=== PATIENT | male | born 1955 | race Caucasian/White ===

== ENCOUNTER 2018-06-21 23:20 | Observation (INO) ==
[2018-06-22] MEDS ORDERED: Naloxone 0.4 MG/ML INJ IVP PRN ×2 (00:54→03:24)
[2018-06-22] MEDS: D5% in 0.45% NACL 1,000 ML IVC SCH ×2 (02:12→12:04)
--- NOTE | 2018-06-22 03:40 | Internal Med History&Physical ---
Date of Encounter: 06/23/18 Time of Encounter: 03:38 Internal Medicine - H&P: HPI Chief complaint: AMS History of present illness: Mr. Rodriguez is a 63 year old male with no prior past medical history who initially was brought by EMS to [facility] due to altered mental status. At the time my assessment patient was refusing to open his eyes and provide any verbal response but was following commands. Patient's family was at the bedside who provided the majority of the history as well medical documents obtained from [facility]. Per the family, patient was in his usual state of health earlier today. He was was last reported seen to be behaving normally around 2 PM. Around 5 PM patient called his brother. His brother reports patient sounded confused, had slurred speech, and was unaware where he was. Around 6:30 PM patient was eventually found sitting in his jeep parked along a back road. His son-in-law was a first to arrive at the scene. He reports that the patient was sitting up in his jeep with his hands clenched on the steering wheel with his eyes closed. He reportedly was following commands but refused to open his eyes and was not speaking. From his standpoint there was no evidence of facial droop or incontinence. He did appear to be drooling and did appear to move all his extremities. Eventually EMS arrived 15 minutes later. 3 people were required to remove the patient from his vehicle as he showed resistance, clutching to the interior of the car. Family reports that a similar incident occurred 4 years ago. The patient spontaneously recovered from that episode. As noted above, patient has no prior medical history. He does not follow with any physician. He is not currently taking any medications. Family states he does not use drugs. He does chew tobacco but no alcohol. His initial set of vital vitals were relatively normal. His blood pressure was elevated at 174 for 77. Initial NIH of 8. Laboratory workup at [facility] including a complete metabolic panel was notable only for a mildly elevated creatinine of 1.65 and blood sugar of 182. His CBC was normal. Urine drug screen was negative. CT scan of the head was negative. CT scan of the abdomen showed enlarged prostate. Patient was given 1 dose of Rocephin 1 g possible UA. Past Med Surg Social Fam HX - Past Medical History Additional medical history: hole in intestiine Psychiatric history: no psych history - Social History Smoking Status: Never smoker Smokeless Tobacco Status: Yes (can a day) Alcohol use: none Drug use: none - Family History Mother Living Status: Age at : 70 Cause of : cancer Father Living Status: Age at : 50 Cause of : heart attack Sister Age: 66 Living Status: Still Living Hx Family Musculoskeletal Disorders: Yes (MS) Son Age: 28 Living Status: Still Living Hx Family Neurologic Disorders: (seizure disorder) Internal Medicine - H&P: Meds No Known Home Drugs 06/22/18 [History] 3 Allergy/AdvReac Type Severity Reaction Status Date / Time No Known Allergies Allergy Verified 06/22/18 15:02 All Systems PM: A 10-system review of systems was performed and is negative for pertinent findings except as documented above in the HPI. - Constitutional Constitutional: no chills, no fever(s), no night sweats - EENT Eyes: no change in vision, no discharge, no pain, no photophobia Ears: no ear discharge, no ear pain, no tinnitus Nose, mouth and throat: no dysphagia, no nasal discharge, no neck pain, no sore throat - Cardiovascular Cardiovascular ROS IM: no chest pain, no diaphoresis, no dyspnea, no lightheadedness, no palpitations, no syncope - Respiratory Respiratory: no cough, no dyspnea, no wheezing, no excessive phlegm production - Gastrointestinal Gastrointestinal: no abdominal pain, no diarrhea, no hematemesis, no hematochezia, no melena, no nausea, no vomiting - Musculoskeletal Musculoskeletal ROS IM: no numbness, no tingling - Integumentary Integumentary IM: no rash, no unusual bruising - Neurological Neurological ROS: no confusion, no convulsions, no focal weakness, no numbness, no tingling, no tremor(s) - Hematologic/Lymphatic Hematologic/Lymphatic: no easy bruising - Constitutional Vitals: Temp Pulse Resp BP Pulse Ox 97.8 F 65 17 154/80 98 06/22/18 01:17 06/22/18 01:17 06/22/18 01:17 06/22/18 01:17 06/22/18 01:17 Exam: General: Patient lying in bed. Responding to verbal commands but refuses to open eyes and speak. Skin: Normal color, no rash, no lesions. HEENT: No nuchal rigidity. EOM, pupils equal, round and reactive. Cardiovascular:Normal S1 & S2, no rubs, murmurs or gallops. No JVD. Pulse regular. Lungs:Normal breath sounds, no wheezes or crackles. Abdomen:Soft, non-tender, no rigidity. Extremities:No deformity, no edema or tenderness, no joint swelling or clubbing. Neurological: Patient following commands. Patient moving all 4 extremities. Pupils equal and reactive to light. Pulses:Carotid and radial pulses normal +2. Rest of the physical exam is non contributory Internal Med - H&P Results - Labs CBC & Chem 7: 06/22/18 04:41 06/22/18 04:41 - Assessment and plan (1) Altered mental status, unspecified Current Visit: Yes Status: Acute Assessment and plan: Altered mental status of unclear etiology. Family reports patient had similar presentation 4 years prior and spontaneously resolved. CT scan of the head at [facility] was negative. Based on history patient does not appear to have any focal deficits at this time to suggest cerebral vascular accident. Patient follows commands able to move all 4 extremities however simply refuses to open his eyes and speak. No prior reports of seizures and current presentation is atypical. Laboratory workup was unremarkable for suspicion of any infectious etiology or toxic metabolic encephalopathy as you urine drug screen was negative. Ethanol, acetaminophen level and blood cultures were also obtained at [facility] results of which I do not have. We will repeat these laboratory tests as well as TSH. No other metabolic derangements seen. EKG repeated here at [place] was unremarkable. Current presentation may be psychiatric versus ingestion of an unknown substance which was not picked up on UDS. Neuro checks every 4 We will obtain psychiatry consult for possible conversion disorder Consider MRI in the morning. Qualifiers: Altered mental status type: unspecified Qualified Code(s): R41.82 - Altered mental status, unspecified (2) RHONDA (acute kidney injury) Current Visit: Yes Status: Acute Assessment and plan: Patient received 1 L bolus at [facility]. We will start patient on maintenance fluids. Repeat chemistry in the morning. (3) Hyperglycemia Current Visit: Yes Status: Acute Assessment and plan: No documented history of diabetes. We will check A1c as well as lipid panel. Blood glucose checks. Sliding scale as needed. (4) DVT prophylaxis Current Visit: Yes Status: Acute - Time Spent With Patient Total time spent is greater than 50% in coordination of care (as documented) at patient's floor/unit and/or counseling patient:
[2018-06-22] MEDS ORDERED: Dextrose Gel 15 GM/37.5 ML TUBE PO PRN ×2 (04:40)
[2018-06-22] MEDS ORDERED: D5% in Water 1,000 ML IVC PRN (04:40)
[2018-06-22] MEDS ORDERED: *HR* Dextrose 50 % in Water (Syg) 50 ML SYRINGE IVP PRN (04:40)
[2018-06-22 05:02] LABS: Basophils % 0.7 %; Eosinophils # 0.1 K/mcL (0.0-0.6); Eosinophils % 1.3 %; Hematocrit 38.8 % (37.5-50.1); Hemoglobin 12.7 g/dL (12.9-16.9); Immature Granulocytes % 0.5 % (0-4); Lymphocytes # 1.7 K/mcL (0.6-4.6); Mean Corpuscular HGB Conc 32.7 g/dL (31.6-35.5); Mean Corpuscular Hemoglobin 26.1 pg (28.0-33.3); Mean Corpuscular Volume 79.7 fL (83.0-100.0); Mean Platelet Volume 10.4 fL (9.4-12.4); Monocytes # 0.6 K/mcL (0.0-1.3); Monocytes % 9.7 %; Neutrophils # 3.6 K/mcL (1.6-8.9); Platelet Count 202 K/mcL (140-400); Red Blood Count 4.87 M/mcL (4.19-5.50); Red Cell Distribution Width 14.4 % (11.5-14.5); Segmented Neutrophils % 59.8 %
[2018-06-22] MEDS: *HR* Heparin 5,000 UNIT/ML VIAL SQ SCH ×3 (05:28→21:26)
[2018-06-22 05:29] LABS: Acetaminophen < 10 mcg/mL (10-20); Creatine Kinase 76 Units/L (30-223); Ethanol < 10 mg/dL (Less than 10)
[2018-06-22 05:30] LABS: Alanine Aminotransferase 16 Units/L (7-52); Albumin 3.8 g/dL (3.5-5.7); Albumin/Globulin Ratio 1.7 (1.1-2.2); Alkaline Phosphatase 70 Units/L (34-104); Aspartate Amino Transferase 15 Units/L (13-39); BUN/Creatinine Ratio 12 (6-26); Bilirubin,Total 0.3 mg/dL (0.3-1.0); Blood Urea Nitrogen 15 mg/dL (8-23); Calcium 8.9 mg/dL (8.6-10.3); Carbon Dioxide 24 mEq/L (23-29); Chloride 112 mEq/L (98-107); Chol/HDL Ratio 5.1 (0-4.9); Cholesterol 138 mg/dL (< 200); Globulin 2.2 g/dL (2.4-3.5); Glucose 115 mg/dL (70-105); HDL Cholesterol 27 mg/dL (40-59); LDL Cholesterol,Calculated 89 mg/dL (0-99); Magnesium 2.1 mg/dL (1.6-2.6); Osmolality,Calculated 296 (280-300); Potassium 3.6 mEq/L (3.5-5.1); Sodium 142 mEq/L (136-145); Triglycerides 111 mg/dL (< 150); Troponin I < 0.03 ng/mL (< 0.04); eGFR For Non-African Americans > 60 (> 60)
[2018-06-22] MEDS: Insulin LISPRO 300 UNITS/3 ML VIAL SQ SCH ×3 (05:31→17:50)
[2018-06-22 05:42] LABS: Thyroid Stimulating Hormone 3.943 mcIU/mL (0.340-5.600)
[2018-06-22 05:42] LABS: Bilirubin,Urine Negative (Negative); Blood,Urine Trace (Negative); Clarity,Urine Clear (Clear); Color,Urine Yellow (Yellow); Glucose,Urine (UA) Normal (Normal); Ketones,Urine Negative (Negative); Leukocyte Esterase,Urine Negative (Negative); Nitrite,Urine Negative (Negative); Protein,Urine Negative (Neg-Trace); Specific Gravity,Urine > 1.030 (1.010-1.025); Urobilinogen,Urine Normal (Normal)
[2018-06-22 05:44] LABS: Bacteria,Urine None Seen per hpf (None-Few); Hyaline Casts,Urine None Seen per lpf (None-Few); RBC,Urine 0-3 per hpf (0-3); Squamous Epithelial Cell,Urine Few per lpf (None-Few)
[2018-06-22 10:15] LABS: Estimated Average Glucose 103 mg/dl; Hemoglobin A1C 5.2 %
--- NOTE | 2018-06-22 12:31 | Event Note ---
Date of Encounter: 06/22/18 Time of Encounter: 12:31 Patient seen and examined earlier this am by hospitalist. I did review records from outside facility Currently awake asked patient to tell me his name He shook his head no. He follows simple commands cranial nerve 2-12 intact. No focal deficit noted. No infectious process noted. Daughter at bedside who states that patient experienced very similar episode approximately 4 years ago and it resolved on its own. We will obtain MRI to rule out possible stroke/ TIA. Awaiting psychiatric evaluation and recommendations. Continue with neuro checks. Consult neurology as needed. He is hemodynamically stable this time.
--- NOTE | 2018-06-22 14:47 | Consult Note ---
Date of Encounter: 06/22/18 Time of Encounter: 14:00 Assessment & Recommendation (1) Generalized anxiety disorder Current visit: Yes Status: Chronic Assessment & Recommendation: start lexapro 5 mg po am History of Present Illness Patient: new to practice Requesting Physician: Verna Patel MD Reason for consult: altered mental status History of present illness: Mr. Rodriguez is a 63 year old male was consulted at his bed side , chart reviewed , got collateral from his daughter. Patient is peasant , verbal but kept his eyes mostly closed. He does not remember what happened and no recall of the episode he had. He was bought to ED with AMS, and was found confused with slurred speech and was in his car with his hands clenched on the wheels. At present patient agreed he has some stressor , he has generalized anxiety and some stress, denied any a/v hallucination, no paranoia , no psychosis, no depression , no si/hi. He lives alone for 6 years , very close to his family , has 4 children , he staed his sleep and appetite ok, he likes to go out and eat mostly. He denies Alcohol, drugs, cig. he chew tobacco. Collateral from his daughter Ms. Gagnon As per her today her father is much better , he had same episode in past but recovered spontaneously, states he has sold his home and bought brand new [employer] and will live next to her , but since he got camper 4 weeks ago it has been having problems and has gone back and forth and that was the stress, he wants to live close to his daughter she states my father is family man and last time also they said he has anxiety but never gave any medication. at present as per chart he will have MRI. A/p Generalized anxiety disorder Start Lexapro 5 mg po am , patient agreed with the plan. at present no other psych s/s thank you for consult and involving in his care. Will sign off. CC: Verna Patel MD CC:I feel ok. Past Med Surg Social Fam HX - Past Psychiatric History Psychiatric history: Reports: no psych history Family psychiatric history: No Family History of Suicide: None - Social History Smoking Status: Never smoker Smokeless Tobacco Status: Yes (can a day) Alcohol use: none Drug use: none - Family History Mother Living Status: Age at : 70 Cause of : cancer Father Living Status: Age at : 50 Cause of : heart attack Sister Age: 66 Living Status: Still Living Hx Family Musculoskeletal Disorders: Yes (MS) Son Age: 28 Living Status: Still Living Hx Family Neurologic Disorders: (seizure disorder) Medications & Allergies 3 Allergy/AdvReac Type Severity Reaction Status Date / Time No Known Allergies Allergy Verified 06/22/18 02:07 Review of Systems Psychiatric: Reports: anxiety Psychiatry Exam - Constitutional Vitals: Temp Pulse Resp BP Pulse Ox 97.8 F 63 16 142/76 96 06/22/18 11:36 06/22/18 11:36 06/22/18 11:36 06/22/18 11:36 06/22/18 11:36 General appearance: age & developmentally appropriate - Psychiatric Patient Orientation: Yes Person, Yes Time, Yes Place Level of alertness: Alert Behavior: cooperative Eye Contact: Minimal Contact Mood Description: Anxious Affect description: constricted Speech Volume: Soft/Quiet Speech pattern: clear, coherent, slowed Language & Vocabulary: consistent with education Thought Process: Intact Thought Content: Yes Intact Attention Span Ability: Capable of Focused Attention Intelligence Estimate: Average Judgment: Good Insight: Partial Results - Drug Levels and Toxicology Drug Levels and Toxicology: Drug Levels and Toxicity 06/22/18 04:41 Acetaminophen < 10 L Ethyl Alcohol < 10 - Labs Labs: Laboratory Last Values WBC 6.0 K/mcL (4.3-11.1) 06/22/18 04:41 RBC 4.87 M/mcL (4.19-5.50) 06/22/18 04:41 Hgb 12.7 g/dL (12.9-16.9) L 06/22/18 04:41 Hct 38.8 % (37.5-50.1) 06/22/18 04:41 MCV 79.7 fL (83.0-100.0) L 06/22/18 04:41 MCH 26.1 pg (28.0-33.3) L 06/22/18 04:41 MCHC 32.7 g/dL (31.6-35.5) 06/22/18 04:41 RDW 14.4 % (11.5-14.5) 06/22/18 04:41 Plt Count 202 K/mcL (140-400) 06/22/18 04:41 MPV 10.4 fL (9.4-12.4) 06/22/18 04:41 Immature Gran % 0.5 % (0-4) 06/22/18 04:41 Seg Neutrophils % 59.8 % 06/22/18 04:41 Lymphocytes % 28.0 % 06/22/18 04:41 Monocytes % 9.7 % 06/22/18 04:41 Eosinophils % 1.3 % 06/22/18 04:41 Basophils % 0.7 % 06/22/18 04:41 Neutrophils # 3.6 K/mcL (1.6-8.9) 06/22/18 04:41 Lymphocytes # 1.7 K/mcL (0.6-4.6) 06/22/18 04:41 Monocytes # 0.6 K/mcL (0.0-1.3) 06/22/18 04:41 Eosinophils # 0.1 K/mcL (0.0-0.6) 06/22/18 04:41 Basophils # 0.0 K/mcL (0.0-0.2) 06/22/18 04:41 Sodium 142 mEq/L (136-145) 06/22/18 04:41 Potassium 3.6 mEq/L (3.5-5.1) 06/22/18 04:41 Chloride 112 mEq/L (98-107) H 06/22/18 04:41 Carbon Dioxide 24 mEq/L (23-29) 06/22/18 04:41 BUN 15 mg/dL (8-23) 06/22/18 04:41 Creatinine 1.22 mg/dL (0.70-1.30) 06/22/18 04:41 Est GFR ( Amer) > 60 (> 60) 06/22/18 04:41 Est GFR (Non-Af Amer) > 60 (> 60) 06/22/18 04:41 BUN/Creatinine Ratio 12 (6-26) 06/22/18 04:41 Glucose 115 mg/dL (70-105) H 06/22/18 04:41 Est Mean Plasma Glucose 103 mg/dl 06/22/18 04:41 Hemoglobin A1c 5.2 % (-5.6) 06/22/18 04:41 Calculated Osmolality 296 (280-300) 06/22/18 04:41 Lactic Acid 1.0 mmol/L (0.5-2.2) 06/22/18 04:41 Calcium 8.9 mg/dL (8.6-10.3) 06/22/18 04:41 Magnesium 2.1 mg/dL (1.6-2.6) 06/22/18 04:41 Total Bilirubin 0.3 mg/dL (0.3-1.0) 06/22/18 04:41 AST 15 Units/L (13-39) 06/22/18 04:41 ALT 16 Units/L (7-52) 06/22/18 04:41 Alkaline Phosphatase 70 Units/L (34-104) 06/22/18 04:41 Creatine Kinase 76 Units/L (30-223) 06/22/18 04:41 Troponin I < 0.03 ng/mL (< 0.04) 06/22/18 04:41 Serum Total Protein 6.0 g/dL (6.4-8.9) L 06/22/18 04:41 Albumin 3.8 g/dL (3.5-5.7) 06/22/18 04:41 Globulin 2.2 g/dL (2.4-3.5) L 06/22/18 04:41 Albumin/Globulin Ratio 1.7 (1.1-2.2) 06/22/18 04:41 Triglycerides 111 mg/dL (< 150) 06/22/18 04:41 Cholesterol 138 mg/dL (< 200) 06/22/18 04:41 LDL Cholesterol, Calc 89 mg/dL (0-99) 06/22/18 04:41 VLDL Cholesterol, Calc 22 mg/dL (< 31) 06/22/18 04:41 HDL Cholesterol 27 mg/dL (40-59) L 06/22/18 04:41 Cholesterol/HDL Ratio 5.1 (0-4.9) H 06/22/18 04:41 TSH 3.943 mcIU/mL (0.340-5.600) 06/22/18 04:41 Urine Color Yellow (Yellow) 06/22/18 05:34 Urine Clarity Clear (Clear) 06/22/18 05:34 Urine pH 6.0 pH Units (5.0-8.0) 06/22/18 05:34 Ur Specific [place] > 1.030 (1.010-1.025) H 06/22/18 05:34 Urine Protein Negative mg/dL (Neg-Trace) 06/22/18 05:34 Urine Glucose (UA) Normal mg/dL (Normal) 06/22/18 05:34 Urine Ketones Negative mg/dL (Negative) 06/22/18 05:34 Urine Blood Trace (Negative) H 06/22/18 05:34 Urine Nitrite Negative (Negative) 06/22/18 05:34 Urine Bilirubin Negative (Negative) 06/22/18 05:34 Urine Urobilinogen Normal mg/dL (Normal) 06/22/18 05:34 Ur Leukocyte Esterase Negative (Negative) 06/22/18 05:34 Urine Microscopic RBC 0-3 per hpf (0-3) 06/22/18 05:34 Urine Microscopic WBC 3-5 per hpf (0-3) H 06/22/18 05:34 Ur Squamous Epith Cells Few per lpf (None-Few) 06/22/18 05:34 Urine Bacteria None Seen per hpf (None-Few) 06/22/18 05:34 Hyaline Casts None Seen per lpf (None-Few) 06/22/18 05:34 Ur Culture Indicated? NO (NO) 06/22/18 05:34 Acetaminophen < 10 mcg/mL (10-20) L 06/22/18 04:41 Ethyl Alcohol < 10 mg/dL (Less than 10) 06/22/18 04:41 Consult Discharge Plan - Plan Referrals: NONE,PCP [Primary Care Provider] - Doreen Arriaga [Family Provider] -
[2018-06-22] MEDS ORDERED: Acetaminophen 325 MG TABLET PO PRN (15:55)
[2018-06-22] MEDS ORDERED: Insulin LISPRO 300 UNITS/3 ML VIAL SQ SCH (21:00)
[2018-06-23] MEDS: *HR* Heparin 5,000 UNIT/ML VIAL SQ SCH (06:01)
[2018-06-23] MEDS ORDERED: Insulin LISPRO 300 UNITS/3 ML VIAL SQ SCH (07:30)
[2018-06-23 07:33] VITALS: BP 149/88
--- NOTE | 2018-06-23 10:57 | Discharge Summary ---
- NOTES TO OUTPATIENT PROVIDER Notes to Outpatient Provider: f/u with PCP within a week. Orders not resulted at time of discharge: Pending orders 06/22/18 04:41 Culture,Blood [BC] AM 0400 06/22/18 12:49 Vitamin B1 (Thiamine) Whole Bl Routine 06/23/18 06:00 EKG [ECG 12 lead ECG] [ECG] AM 0600 Date of Encounter: 06/23/18 Time of Encounter: 10:54 - Discharge Diagnosis (1) Altered mental status, unspecified Priority: Primary Status: Acute Qualifiers: Altered mental status type: unspecified Qualified Code(s): R41.82 - Altered mental status, unspecified (2) RHONDA (acute kidney injury) Priority: Primary Status: Acute (3) Hyperglycemia Priority: Primary Status: Resolved (4) DVT prophylaxis Priority: Primary Status: Acute (5) Generalized anxiety disorder Priority: Secondary Status: Chronic (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 Rodriguez is a 63 year old male with past medical history of anxiety who initially was brought by EMS to [facility] due to altered mental status. Patient's family was at the bedside who provided the majority of the history as well medical documents obtained from [facility]. Per the family, patient was in his usual state of health earlier today. He was was last reported seen to be behaving normally around 2 PM. Around 5 PM patient called his brother. His brother reports patient sounded confused, had slurred speech, and was unaware where he was. Around 6:30 PM patient was eventually found sitting in his jeep parked along a back road. His son-in-law was a first to arrive at the scene. He reports that the patient was sitting up in his jeep with his hands clenched on the steering wheel with his eyes closed. He did appear to be drooling and did appear to move all his extremities. Eventually EMS arrived 15 minutes later. 3 people were required to remove the patient from his vehicle as he showed resistance, clutching to the interior of the car. Family reports that a similar incident occurred 4 years ago. The patient spontaneously recovered from that episode. He does not follow with any physician. He is not currently taking any medications. Family states he does not use drugs. He does chew tobacco but no alcohol. His initial set of vital vitals were relatively normal. His blood pressure was elevated at 174 for 77. Initial NIH of 8. Laboratory workup at [facility] including a complete metabolic panel was notable only for a mildly elevated creatinine of 1.65 and blood sugar of 182. His CBC was normal. Urine drug screen was negative. CT scan of the head was negative. CT scan of the abdomen showed enlarged prostate. Patient was given 1 dose of Rocephin 1 g possible UA. Patient was transferred to this hospital for further evaluation. Upon arrival, patient vital signs were stable. Physical exam revealed no focal neuro deficit, however, patient was not cooperative with the admitting physician. MRI brain revealed no acute infarction, a incidental finding of pineal gland cyst. Psychiatry was consulted , Lexapro was prescribed. Patient symptoms resolved spontaneously after the admission. He was alert and oriented 3 this morning, corporative, and pleasant. After discussed with the patient and her family, we will discharge patient home today. She was instructed to continue follow-up with PCP about pineal gland cyst and also comorbidities. Discharge discussed with: patient, family Time spent discussing smoking cessation with patient: more than 10 minutes - Time Spent with Patient Total time spent providing and/or coordinating discharge services: Less than 30 minutes - Discharge Medications Prescriptions: Escitalopram [Lexapro] 5 mg PO DAILY #30 tablet Home Medications: Escitalopram [Lexapro] 5 mg PO DAILY #30 tablet 06/23/18 [Rx] Allergies/Adverse Reactions: 3 Allergy/AdvReac Type Severity Reaction Status Date / Time No Known Allergies Allergy Verified 06/22/18 15:02 Date of admission: 06/22/18 00:44 Primary care physician: PCP NONE Consults: 06/22/18 03:29 Consult to Psychiatry [CONS] Routine Consulting Provider: Psychiatry [facility] Reason consult: Altered mental status Anticipated date of discharge: 06/23/18 - Constitutional Vitals: Temp Pulse Resp BP Pulse Ox 97.6 F 67 18 149/88 97 06/23/18 07:28 06/23/18 07:28 06/23/18 07:28 06/23/18 07:28 06/23/18 07:28 General appearance: Present: cooperative, A&O X 3, answers questions appropriately Exam: General: Patient lying in bed. Responding to verbal commands but refuses to open eyes and speak. Skin: Normal color, no rash, no lesions. HEENT: No nuchal rigidity. EOM, pupils equal, round and reactive. Cardiovascular:Normal S1 & S2, no rubs, murmurs or gallops. No JVD. Pulse regular. Lungs:Normal breath sounds, no wheezes or crackles. Abdomen:Soft, non-tender, no rigidity. Extremities:No deformity, no edema or tenderness, no joint swelling or clubbing. Neurological: Patient following commands. Patient moving all 4 extremities. Pupils equal and reactive to light. Pulses:Carotid and radial pulses normal +2. Rest of the physical exam is non contributory - Patient Status Disposition: Home, Self-Care Condition: Fair Functional capacity at discharge: independent ambulation Overall status at discharge: patient is progressing back to baseline - Discharge Instructions Follow Up With: NONE,PCP [Primary Care Provider] - Doreen Arriaga [Family Provider] - - Diet and Activity Activity: increase activity as tolerated Diet: advance to your usual diet
--- NOTE | 2018-06-25 09:37 | Electrocardiograph Report ---
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
== END 2018-06-23 11:59 | disposition home or self-care (01) ==
LOC: 3BNU
PROVIDERS: ADMIT Internal Medicine; ATTEND Internal Medicine

== ENCOUNTER 2019-08-11 16:50 | Inpatient (IN) ==
[2019-08-11 17:48] LABS: Basophils # 0.1 K/mcL (0.0-0.2); Basophils % 0.8 %; Eosinophils # 0.1 K/mcL (0.0-0.6); Eosinophils % 1.5 %; Hematocrit 46.1 % (37.5-50.1); Hemoglobin 14.8 g/dL (12.9-16.9); Immature Granulocytes % 0.8 % (0-4); Lymphocytes # 1.8 K/mcL (0.6-4.6); Lymphocytes % 27.1 %; Mean Corpuscular HGB Conc 32.1 g/dL (31.6-35.5); Mean Corpuscular Hemoglobin 26.1 pg (28.0-33.3); Mean Corpuscular Volume 81.3 fL (83.0-100.0); Mean Platelet Volume 10.5 fL (9.4-12.4); Monocytes # 0.6 K/mcL (0.0-1.3); Platelet Count 240 K/mcL (140-400); Red Blood Count 5.67 M/mcL (4.19-5.50); Red Cell Distribution Width 14.6 % (11.5-14.5); Segmented Neutrophils % 60.8 %; White Blood Count 6.6 K/mcL (4.3-11.1)
[2019-08-11 18:05] LABS: BUN/Creatinine Ratio 13 (6-26); Blood Urea Nitrogen 20 mg/dL (8-23); Calcium 9.5 mg/dL (8.6-10.3); Carbon Dioxide 25 mEq/L (23-29); Chloride 107 mEq/L (98-107); Glucose 137 mg/dL (70-105); Osmolality,Calculated 291 (280-300); Potassium 3.9 mEq/L (3.5-5.1); Sodium 138 mEq/L (136-145); eGFR For African Americans 57 (> 60); eGFR For Non-African Americans 47 (> 60)
[2019-08-11 18:08] LABS: Troponin I < 0.03 ng/mL (< 0.04)
[2019-08-11] MEDS ORDERED: 0.9 % Sodium Chloride 500 ML IVC ONE (18:28)
[2019-08-11] MEDS ORDERED: Aspirin 325 MG TABLET PO ONE (18:28)
[2019-08-11] MEDS: Nitroglycerin 0.4 MG TAB.SUBL SL PRN ×2 (21:34→23:42)
[2019-08-11] MEDS ORDERED: *HR* LORazepam 2 MG/ML VIAL IVP ONE (21:41)
[2019-08-12] MEDS ORDERED: *HR* Heparin 5,000 UNIT/ML VIAL IVP ONE (00:04)
[2019-08-12] MEDS ORDERED: *HR* Heparin 5,000 UNIT/ML VIAL IVP PRN ×2 (00:04)
[2019-08-12 00:32] LABS: Hematocrit 42.7 % (37.5-50.1); Hemoglobin 14.3 g/dL (12.9-16.9); Mean Corpuscular HGB Conc 33.5 g/dL (31.6-35.5); Mean Corpuscular Hemoglobin 26.3 pg (28.0-33.3); Mean Corpuscular Volume 78.6 fL (83.0-100.0); Mean Platelet Volume 10.5 fL (9.4-12.4); Platelet Count 227 K/mcL (140-400); Red Blood Count 5.43 M/mcL (4.19-5.50); Red Cell Distribution Width 14.6 % (11.5-14.5); White Blood Count 6.3 K/mcL (4.3-11.1)
[2019-08-12 00:39] LABS: Prothrombin Time 11.6 Seconds (9.4-12.1)
[2019-08-12 00:40] LABS: Activated Partial Thrombo Time 30.4 Seconds (26.0-36.0)
[2019-08-12 00:55] LABS: Troponin I < 0.03 ng/mL (< 0.04)
[2019-08-12] MEDS ORDERED: Scopolamine Patch 1.5 MG PATCH.TD72 TD ONE (00:58)
[2019-08-12] MEDS: Heparin 25,000 UNIT/250 ML D5W 25,000 UNIT/250 ML IV.SOLN IVC SCH (01:04)
[2019-08-12] MEDS ORDERED: Naloxone 0.4 MG/ML INJ IVP PRN (01:14)
[2019-08-12] MEDS ORDERED: traMADol 50 MG TABLET PO PRN (01:14)
[2019-08-12] MEDS ORDERED: Acetaminophen 325 MG TABLET PO PRN (01:14)
[2019-08-12] MEDS ORDERED: *HR* Promethazine 25 MG/ML VIAL IVP PRN (01:14)
[2019-08-12] MEDS ORDERED: *HR* LORazepam 2 MG/ML VIAL IVP PRN (01:57)
[2019-08-12] MEDS ORDERED: 0.9 % Sodium Chloride 1,000 ML IVC SCH (02:00)
[2019-08-12 02:42] LABS: BUN/Creatinine Ratio 13 (6-26); Blood Urea Nitrogen 20 mg/dL (8-23); Calcium 9.4 mg/dL (8.6-10.3); Carbon Dioxide 23 mEq/L (23-29); Chloride 108 mEq/L (98-107); Chol/HDL Ratio 5.9 (0-4.9); Cholesterol 158 mg/dL (< 200); Glucose 179 mg/dL (70-105); HDL Cholesterol 27 mg/dL (40-59); LDL Cholesterol,Calculated 97 mg/dL (0-99); Magnesium 2.1 mg/dL (1.6-2.6); Osmolality,Calculated 295 (280-300); Phosphorous 2.7 mg/dL (2.7-4.5); Potassium 3.7 mEq/L (3.5-5.1); Sodium 139 mEq/L (136-145); Triglycerides 170 mg/dL (< 150); eGFR For African Americans 57 (> 60); eGFR For Non-African Americans 47 (> 60)
[2019-08-12 03:03] LABS: Thyroid Stimulating Hormone 4.555 mcIU/mL (0.340-5.600)
[2019-08-12 04:47] LABS: Hematocrit 41.5 % (37.5-50.1); Hemoglobin 14.1 g/dL (12.9-16.9); Mean Corpuscular Hemoglobin 26.8 pg (28.0-33.3); Mean Corpuscular Volume 78.7 fL (83.0-100.0); Mean Platelet Volume 10.6 fL (9.4-12.4); Platelet Count 222 K/mcL (140-400); Red Blood Count 5.27 M/mcL (4.19-5.50); Red Cell Distribution Width 14.5 % (11.5-14.5); White Blood Count 7.1 K/mcL (4.3-11.1)
[2019-08-12] MEDS ORDERED: Regadenoson 0.4 MG/5 ML SYRINGE IVP ONE (06:33)
[2019-08-12 08:27] LABS: Estimated Average Glucose 117 mg/dl
[2019-08-12] MEDS: Aspirin 81 MG TAB.CHEW PO SCH (14:10)
[2019-08-12 16:31] LABS: BUN/Creatinine Ratio 13 (6-26); Blood Urea Nitrogen 17 mg/dL (8-23); Calcium 9.3 mg/dL (8.6-10.3); Carbon Dioxide 23 mEq/L (23-29); Chloride 109 mEq/L (98-107); Glucose 92 mg/dL (70-105); Osmolality,Calculated 287 (280-300); Potassium 4.2 mEq/L (3.5-5.1); Sodium 138 mEq/L (136-145); eGFR For African Americans > 60 (> 60); eGFR For Non-African Americans 54 (> 60)
[2019-08-13 02:02] LABS: Calcium 9.2 mg/dL (8.6-10.3); Potassium 3.9 mEq/L (3.5-5.1)
[2019-08-13 06:37] LABS: Basophils # 0.1 K/mcL (0.0-0.2); Basophils % 0.8 %; Eosinophils # 0.1 K/mcL (0.0-0.6); Eosinophils % 2.2 %; Hematocrit 41.7 % (37.5-50.1); Immature Granulocytes % 1.3 % (0-4); Lymphocytes % 31.2 %; Mean Corpuscular HGB Conc 33.6 g/dL (31.6-35.5); Mean Corpuscular Hemoglobin 26.3 pg (28.0-33.3); Mean Corpuscular Volume 78.2 fL (83.0-100.0); Mean Platelet Volume 10.5 fL (9.4-12.4); Monocytes # 0.6 K/mcL (0.0-1.3); Monocytes % 9.4 %; Neutrophils # 3.5 K/mcL (1.6-8.9); Platelet Count 225 K/mcL (140-400); Red Blood Count 5.33 M/mcL (4.19-5.50); Red Cell Distribution Width 14.5 % (11.5-14.5); Segmented Neutrophils % 55.1 %; White Blood Count 6.3 K/mcL (4.3-11.1)
[2019-08-13 06:41] LABS: Prothrombin Time 11.7 Seconds (9.4-12.1)
[2019-08-13 06:52] LABS: Potassium 4.2 mEq/L (3.5-5.1)
[2019-08-13] MEDS ORDERED: 0.9 % Sodium Chloride 500 ML IVC ONE (08:06)
[2019-08-13] MEDS: Heparin 25,000 UNIT/250 ML D5W 25,000 UNIT/250 ML IV.SOLN IVC SCH (09:21)
[2019-08-13] MEDS: Aspirin 81 MG TAB.CHEW PO SCH (10:04)
[2019-08-13] MEDS: 0.9 % Sodium Chloride 1,000 ML IVC SCH ×2 (10:12→18:26)
[2019-08-13 11:14] LABS: Calcium 9.1 mg/dL (8.6-10.3)
[2019-08-14] MEDS: 0.9 % Sodium Chloride 1,000 ML IVC SCH ×2 (02:31→11:28)
[2019-08-14 05:55] LABS: Basophils % 0.4 %; Eosinophils # 0.1 K/mcL (0.0-0.6); Eosinophils % 1.8 %; Hematocrit 39.2 % (37.5-50.1); Hemoglobin 13.2 g/dL (12.9-16.9); Immature Granulocytes % 0.8 % (0-4); Lymphocytes # 2.2 K/mcL (0.6-4.6); Lymphocytes % 29.9 %; Mean Corpuscular HGB Conc 33.7 g/dL (31.6-35.5); Mean Corpuscular Hemoglobin 26.8 pg (28.0-33.3); Mean Corpuscular Volume 79.7 fL (83.0-100.0); Mean Platelet Volume 10.8 fL (9.4-12.4); Monocytes # 0.7 K/mcL (0.0-1.3); Monocytes % 9.7 %; Neutrophils # 4.1 K/mcL (1.6-8.9); Platelet Count 206 K/mcL (140-400); Red Blood Count 4.92 M/mcL (4.19-5.50); Red Cell Distribution Width 14.5 % (11.5-14.5); Segmented Neutrophils % 57.4 %; White Blood Count 7.2 K/mcL (4.3-11.1)
[2019-08-14 06:01] LABS: INR 1.1; Prothrombin Time 12.6 Seconds (9.4-12.1)
[2019-08-14 06:15] LABS: BUN/Creatinine Ratio 15 (6-26); Blood Urea Nitrogen 21 mg/dL (8-23); Calcium 8.7 mg/dL (8.6-10.3); Carbon Dioxide 23 mEq/L (23-29); Chloride 111 mEq/L (98-107); Glucose 99 mg/dL (70-105); Osmolality,Calculated 293 (280-300); Sodium 140 mEq/L (136-145); eGFR For African Americans > 60 (> 60); eGFR For Non-African Americans 50 (> 60)
[2019-08-14] MEDS: Nitroglycerin 0.4 MG TAB.SUBL SL PRN ×4 (08:15→17:16)
[2019-08-14] MEDS ORDERED: Isosorbide MONOnitrate (24 HR) 30 MG TAB.ER.24H PO SCH (10:30)
[2019-08-14] MEDS: Heparin 25,000 UNIT/250 ML D5W 25,000 UNIT/250 ML IV.SOLN IVC SCH (10:31)
[2019-08-14] MEDS: Aspirin 81 MG TAB.CHEW PO SCH (11:14)
[2019-08-14] MEDS ORDERED: Nitroglycerin 1 INCH/GM PACKET TP SCH (12:00)
[2019-08-14] MEDS ORDERED: Nitroglycerin 25 MG/250 ML INFUS..BTL IVC SCH (19:15)
[2019-08-15 06:05] LABS: Hematocrit 38.1 % (37.5-50.1); Hemoglobin 12.5 g/dL (12.9-16.9); Mean Corpuscular HGB Conc 32.8 g/dL (31.6-35.5); Mean Corpuscular Hemoglobin 26.3 pg (28.0-33.3); Mean Corpuscular Volume 80.2 fL (83.0-100.0); Mean Platelet Volume 10.7 fL (9.4-12.4); Platelet Count 185 K/mcL (140-400); Red Blood Count 4.75 M/mcL (4.19-5.50); Red Cell Distribution Width 14.5 % (11.5-14.5); White Blood Count 7.3 K/mcL (4.3-11.1)
[2019-08-15 06:23] LABS: Alanine Aminotransferase 32 Units/L (7-52); Albumin 3.6 g/dL (3.5-5.7); Albumin/Globulin Ratio 1.7 (1.1-2.2); Alkaline Phosphatase 74 Units/L (34-104); Aspartate Amino Transferase 22 Units/L (13-39); BUN/Creatinine Ratio 14 (6-26); Bilirubin,Total 0.4 mg/dL (0.3-1.0); Blood Urea Nitrogen 19 mg/dL (8-23); Calcium 8.6 mg/dL (8.6-10.3); Carbon Dioxide 21 mEq/L (23-29); Chloride 111 mEq/L (98-107); Globulin 2.1 g/dL (2.4-3.5); Glucose 103 mg/dL (70-105); Magnesium 1.8 mg/dL (1.6-2.6); Osmolality,Calculated 291 (280-300); Potassium 4.1 mEq/L (3.5-5.1); Sodium 139 mEq/L (136-145); Total Protein 5.7 g/dL (6.4-8.9); eGFR For African Americans > 60 (> 60); eGFR For Non-African Americans 53 (> 60)
[2019-08-15] MEDS: Aspirin 81 MG TAB.CHEW PO SCH (08:36)
[2019-08-15] MEDS: 0.9 % Sodium Chloride 1,000 ML IVC SCH ×2 (11:30→20:23)
[2019-08-15] MEDS: Heparin 25,000 UNIT/250 ML D5W 25,000 UNIT/250 ML IV.SOLN IVC SCH (11:31)
[2019-08-16] MEDS: Nitroglycerin 0.4 MG TAB.SUBL SL PRN ×4 (00:34→02:31)
[2019-08-16 03:11] LABS: Hematocrit 39.6 % (37.5-50.1); Hemoglobin 12.7 g/dL (12.9-16.9); Mean Corpuscular HGB Conc 32.1 g/dL (31.6-35.5); Mean Corpuscular Hemoglobin 26.2 pg (28.0-33.3); Mean Corpuscular Volume 81.8 fL (83.0-100.0); Mean Platelet Volume 11.1 fL (9.4-12.4); Platelet Count 200 K/mcL (140-400); Red Blood Count 4.84 M/mcL (4.19-5.50); Red Cell Distribution Width 14.3 % (11.5-14.5); White Blood Count 7.2 K/mcL (4.3-11.1)
[2019-08-16 03:27] LABS: BUN/Creatinine Ratio 11 (6-26); Blood Urea Nitrogen 15 mg/dL (8-23); Calcium 8.7 mg/dL (8.6-10.3); Chloride 108 mEq/L (98-107); Glucose 127 mg/dL (70-105); Osmolality,Calculated 292 (280-300); Potassium 3.6 mEq/L (3.5-5.1); Sodium 140 mEq/L (136-145); eGFR For African Americans > 60 (> 60); eGFR For Non-African Americans 55 (> 60)
[2019-08-16 03:32] LABS: Carbon Dioxide 24 mEq/L (23-29)
[2019-08-16] MEDS: 0.9 % Sodium Chloride 1,000 ML IVC SCH ×2 (04:30→19:04)
[2019-08-16] MEDS: Aspirin 81 MG TAB.CHEW PO SCH (08:24)
[2019-08-16] MEDS: Heparin 25,000 UNIT/250 ML D5W 25,000 UNIT/250 ML IV.SOLN IVC SCH (09:05)
[2019-08-16] MEDS ORDERED: 0.9 % Sodium Chloride 1,000 ML ONE (11:57)
[2019-08-16] MEDS ORDERED: *HR* Heparin 10,000 UNIT/10 ML VIAL ONE (11:57)
[2019-08-16] MEDS ORDERED: ISOVUE-370 200 ML INFUS..BTL ONE (11:57)
[2019-08-16] MEDS ORDERED: Nitroglycerin 1,000 MCG/10 ML VIAL IV ONE (11:57)
[2019-08-16] MEDS ORDERED: *HR* FentaNYL (PF) 100 MCG/2 ML VIAL ONE ×2 (11:57→12:33)
[2019-08-16] MEDS ORDERED: Heparin 1,000 UNITS/500 mL 500 ML ONE (11:57)
[2019-08-16] MEDS ORDERED: *HR* Midazolam HCl 2 MG/2 ML VIAL ONE ×2 (11:57→12:33)
[2019-08-16] MEDS ORDERED: Verapamil 5 MG/2 ML VIAL ONE (12:09)
[2019-08-16] MEDS ORDERED: Tirofiban 12.5 MG/250ML 12.5 MG/250 ML BAG ONE (12:16)
[2019-08-16] MEDS ORDERED: *HR* Ticagrelor 90 MG TABLET ONE (12:50)
[2019-08-16] MEDS ORDERED: Tirofiban 12.5 MG/250ML 12.5 MG/250 ML BAG IVC SCH (13:00)
[2019-08-16] MEDS: *HR* Ticagrelor 90 MG TABLET PO SCH (20:23)
[2019-08-17 06:25] LABS: Basophils % 0.5 %; Eosinophils # 0.1 K/mcL (0.0-0.6); Eosinophils % 1.1 %; Hematocrit 45.2 % (37.5-50.1); Immature Granulocytes % 0.6 % (0-4); Lymphocytes # 1.2 K/mcL (0.6-4.6); Lymphocytes % 13.5 %; Mean Corpuscular HGB Conc 33.4 g/dL (31.6-35.5); Mean Corpuscular Hemoglobin 25.9 pg (28.0-33.3); Mean Corpuscular Volume 77.5 fL (83.0-100.0); Mean Platelet Volume 10.7 fL (9.4-12.4); Monocytes # 0.9 K/mcL (0.0-1.3); Monocytes % 10.9 %; Neutrophils # 6.3 K/mcL (1.6-8.9); Platelet Count 232 K/mcL (140-400); Red Blood Count 5.83 M/mcL (4.19-5.50); Red Cell Distribution Width 14.5 % (11.5-14.5); Segmented Neutrophils % 73.4 %; White Blood Count 8.5 K/mcL (4.3-11.1)
[2019-08-17 06:27] LABS: Hemoglobin 15.1 g/dL (12.9-16.9)
[2019-08-17 06:40] LABS: BUN/Creatinine Ratio 9 (6-26); Blood Urea Nitrogen 11 mg/dL (8-23); Calcium 9.5 mg/dL (8.6-10.3); Carbon Dioxide 21 mEq/L (23-29); Chloride 107 mEq/L (98-107); Glucose 89 mg/dL (70-105); Osmolality,Calculated 289 (280-300); Potassium 3.5 mEq/L (3.5-5.1); Sodium 140 mEq/L (136-145); eGFR For African Americans > 60 (> 60); eGFR For Non-African Americans > 60 (> 60)
[2019-08-17 08:28] VITALS: BP 136/84
[2019-08-17] MEDS: Aspirin 81 MG TAB.CHEW PO SCH (09:41)
[2019-08-17] MEDS: *HR* Ticagrelor 90 MG TABLET PO SCH (09:41)
[2019-08-17] MEDS ORDERED: FLU Vac QV 19-20 (6Month+)/PF 0.5 ML SYRINGE IM ONE (11:35)
== END 2019-08-17 15:33 | disposition home or self-care (01) | DRG 247 ==
LOC: 3NENU 16:50 → EMEROOARM 16:50 → SUATTDRO 19:35 → 3NENU 20:40 → 2NENU 08-14 21:20
PROVIDERS: ADMIT Family Medicine; ATTEND Internal Medicine